=== PATIENT | male | born 1955 | race Caucasian/White ===

== ENCOUNTER 2021-03-08 11:27 | Emergency (ER) | payer MEDICARE, OTHER ==
[~2021-03-08] VITALS: Ht 182.9 cm; Wt 140.6 kg
[2021-03-08] MEDS ORDERED: GLUCOPHAGE1000 MG PO (11:49)
[2021-03-08] MEDS ORDERED: PRINIVIL20 MG PO (11:50)
[2021-03-08] MEDS ORDERED: SIMVASTATIN20 MG PO (11:50)
[2021-03-08] MEDS ORDERED: BACTRIM DS TAB1 EACH PO (13:13)
== END 2021-03-08 13:24 | disposition home or self-care (01) ==
LOC: ED 11:27
DX: L03.213 Periorbital cellulitis (principal); E11.65 Type 2 diabetes mellitus with hyperglycemia; Z79.84 Long term (current) use of oral hypoglycemic drugs; Z79.899 Other long term (current) drug therapy
CPT/HCPCS: 80053; 99284